=== PATIENT | male | born 1995 | race African-American/Black ===

== ENCOUNTER 2021-09-10 00:36 | Emergency (ER) | payer SELFPAY ==
[2021-09-10] MEDS ORDERED: Ketorolac 60 MG/2 ML SDV IM ONE (00:56)
[2021-09-10] MEDS ORDERED: Amoxicillin/Clavulanate K 875-125 MG Tab PO ONE (01:05)
== END 2021-09-10 01:20 | disposition home or self-care (01) ==
LOC: CC.ED 00:36
DX: K04.7 Periapical abscess without sinus (principal); Z72.0 Tobacco use
CPT/HCPCS: 96372; 99282; A9270; J1885